=== PATIENT | female | born 1945 | race Caucasian/White ===

== ENCOUNTER 2017-05-08 12:46 | Emergency (ER) | payer MEDICARE, OTHER ==
[~2017-05-08 12:46] MED LIST: ALPRAZOLAM1 MG PO; CARBIDOPA-LEVO1 EA11 PO; CELEXA 20MG TAB20 MG PO; FERREX 150 FOR1 EACH PO; FLOVENT 44 MCG7.9 GM INH; ISOSORBIDE MONO60 MG PO; LEVOTHYROXINE50 MCG PO; LORTAB 5-325 M1 EACH PO; NEURONTIN 400400 MG PO; PROAIR HFA8.5 GM INH; REQUIP1 MG PO; STALEVO 200 TA1 EACH PO; TRIAMTERENE-HC1 EACH PO; VOLTAREN100 GM TOP
[2017-05-08 14:07] LABS: RED BLOOD COUNT 3.6 M/UL (4.00-5.10); WHITE BLOOD COUNT 7.7 K/UL (4.5-11.0)
== END 2017-05-08 19:45 | disposition home or self-care (01) ==
LOC: ER1 12:46
PROVIDERS: Family Medicine
DX: I95.9 Hypotension, unspecified (principal); D64.9 Anemia, unspecified; N39.0 Urinary tract infection, site not specified; N28.9 Disorder of kidney and ureter, unspecified; G20 Parkinson's disease; M54.9 Dorsalgia, unspecified; G89.29 Other chronic pain; I10 Essential (primary) hypertension; Z79.891 Long term (current) use of opiate analgesic; Z79.899 Other long term (current) drug therapy; Z90.49 Acquired absence of other specified parts of digestive tract
CPT/HCPCS: 36415; 71010; 80053; 81001; 82550; 82553; 83735; 83874; 84443; 84484; 85025; 87086; 93005; 99284; J7030

== ENCOUNTER 2020-11-12 23:31 | Emergency (ER) | payer MEDICARE, OTHER ==
[~2020-11-12 23:31] MED LIST changes: +ASPIRIN EC81 MG PO; +ATORVASTATIN CA40 MG PO; +BUSPIRONE HCL7.5 MG PO; +CELEXA20 MG PO; +COLACE 100MG C100 MG PO; +DULCOLAX5 MG PO; +EFFEXOR XR75 MG PO; +ELIQUIS 2.5 MG2.5 MG PO; +ELIQUIS2.5 MG PO; +FERROUS SULFAT325 M2 PO; +FLEXERIL 10 MG10 MG PO; +FLONASE 0.05% N16 GM; +HYDROCHLOROTHIA25 MG PO; +ISOSORBIDE MONO30 MG PO; -ISOSORBIDE MONO60 MG PO; -LORTAB 5-325 M1 EACH PO; +MACROBID 100 M100 MG PO; +NITROSTAT0.4 MG SL; +NORCO 5-325 TA1 EACH PO; +OXYCODONE-ACET1 EACH PO; +PERCOCET 10-321 EACH PO; +PERCOCET 5/325 T1 EA PO; +POLYETHYLENE GL17 GM PO; +PRAVASTATIN SOD20 MG PO; +REQUIP3 MG PO; +SEROQUEL25 MG PO; +SINEMET CR 50/201 EA PO; +VISTARIL25 MG PO; +Voltaren Gel 1 % TOP; +[UNRECOGNIZED DRUG - OTHER] TOP
[2020-11-12 23:53] LABS: RED BLOOD COUNT 3.31 M/UL (4.00-5.10); WHITE BLOOD COUNT 4.9 K/UL (4.5-11.0)
[2020-11-13 00:10] LABS: BUN/CREATININE RATIO 24 (0-10)
== END 2020-11-13 03:39 | disposition home or self-care (01) ==
LOC: ER1 23:31
PROVIDERS: Internal Medicine
DX: G20 Parkinson's disease (principal); Z95.1 Presence of aortocoronary bypass graft
CPT/HCPCS: 70450; 71045; 80053; 81001; 84484; 85025; 85610; 85730; 93005; 99285

== ENCOUNTER 2021-01-28 06:11 | Emergency (ER) | payer MEDICARE ==
[2021-01-28 08:32] LABS: HEMOGLOBIN 9.8 gm/dl (12.3-15.3); RED BLOOD COUNT 4.01 M/UL (4.00-5.10); WHITE BLOOD COUNT 3.8 K/UL (4.5-11.0)
== END 2021-01-28 11:47 | disposition home or self-care (01) ==
LOC: ER1 06:11
PROVIDERS: Physician Assistant
DX: R51.9 Headache, unspecified (principal); J44.9 Chronic obstructive pulmonary disease, unspecified; E03.9 Hypothyroidism, unspecified; G20 Parkinson's disease; F02.80 Dementia in other diseases classified elsewhere, unspecified severity, without behavioral disturbance, psychotic disturbance, mood disturbance, and anxiety; I11.9 Hypertensive heart disease without heart failure; D64.9 Anemia, unspecified; Z90.710 Acquired absence of both cervix and uterus; Z90.49 Acquired absence of other specified parts of digestive tract
CPT/HCPCS: 70450; 80053; 85025; 96374; 99284; J1885

== ENCOUNTER 2021-03-10 17:47 | Observation (INO) | payer MEDICARE ==
[~2021-03-10] VITALS: Ht 167.6 cm; Wt 54.4 kg
[~2021-03-10 17:47] MED LIST changes: -SINEMET CR 50/201 EA PO
[2021-03-10 18:48] LABS: HEMOGLOBIN 8.7 gm/dl (12.3-15.3); RED BLOOD COUNT 3.5 M/UL (4.00-5.10)
[2021-03-10 19:33] LABS: BUN/CREATININE RATIO 33 (0-10)
[2021-03-11] MEDS ORDERED: ROPINIROLE HCL1 MG PO ×2 (05:31→12:05)
[2021-03-11] MEDS ORDERED: SYNTHROID50 MCG PO (05:31)
[2021-03-11] MEDS ORDERED: LEXAPRO20 MG PO (05:32)
[2021-03-11 06:14] LABS: HEMOGLOBIN 9.5 gm/dl (12.3-15.3); RED BLOOD COUNT 3.83 M/UL (4.00-5.10)
[2021-03-11 06:15] LABS: WHITE BLOOD COUNT 5.9 K/UL (4.5-11.0)
[2021-03-11 06:46] LABS: BUN/CREATININE RATIO 34 (0-10)
[2021-03-11] MEDS ORDERED: KEPPRA750 MG PO (10:09)
[2021-03-11] MEDS ORDERED: NAYZILAM5 MG/0.1 M (10:10)
[2021-03-11] MEDS ORDERED: BACLOFEN20 MG PO (10:10)
[2021-03-11] MEDS ORDERED: TRIAMTERENE-HC1 EACH PO (10:11)
[2021-03-11] MEDS ORDERED: DESYREL 50 MG T50 MG PO (10:12)
[2021-03-11] MEDS ORDERED: APOKYN INJ (12:00)
[2021-03-11] MEDS ORDERED: NASONEX SPRAY 117 GM (12:07)
[2021-03-11] MEDS ORDERED: NEURONTIN800 MG PO (13:04)
[2021-03-12 03:41] LABS: BUN/CREATININE RATIO 37 (0-10)
--- NOTE | 2021-03-12 18:53 | NUR ---
03/12/[address] SOLANO STATED PT WAS NOT SUICIDAL ACCORDING TO THE DAUGHTER, TO CANCEL THE OLOP AND DISCHARGE PT TO HOME WITH HOME. CANCELLED OLOP, DISCHARGE, AND CONSULTED CM AND SS. WILL RE-EVALUATE IN THE AM Eloy RIBERA RN
--- NOTE | 2021-03-12 20:54 | NUR ---
PER REPORT FROM RUSSEL ALVES, PT MEDICATIONS WERE NOW NEEDING TO BE CRUSHED FOR PT SAFETY REASONS. PT TAKES EC ASPIRIN DAILY AND KEPPRA BID. PHARMACY WAS ALERTED TO MEDS BEING CRUSHED AND TO CHANGE ASPIRIN TO CHEWABLE TABLET AND KEPPRA TO LIQUID. DURING MEDICATION ADMINISTRATION, TWO ATTEMPTS WERE MADE TO ADMIN LIQUID KEPPRA, BUT PT HAD IT RUN OUT OF MOUTH EACH TIME, EVEN AFTER THICKENING MEDICATION. PHARMACY WAS THEN NOTIFIED THAT KEPPRA NEEDED TO BE CHANGED TO IV FORM TO ACCOMODATE. FAMILY BEDSIDE AND AWARE
--- NOTE | 2021-03-13 09:47 | NUR ---
PATIENT'S OXYGEN SATURATION WITH ACTIVITY IS 87% ON ROOM AIR.
--- NOTE | 2021-03-13 13:20 | NUR ---
ATTEMPTED TO CALL REPORT TO [facility] HOME. UNABLE TO REACH NURSE FOR REPORT. NO OPTION TO LEAVE VOICEMAIL MESSAGE.
== END 2021-03-13 12:25 | disposition home or self-care (01) ==
LOC: ER1 17:47 → CDU 23:49 → M/S 03-11 21:52
PROVIDERS: Family Medicine; Internal Medicine; ADMIT Internal Medicine
DX: J96.01 Acute respiratory failure with hypoxia (principal); J96.02 Acute respiratory failure with hypercapnia; D64.9 Anemia, unspecified; G20 Parkinson's disease; I25.10 Atherosclerotic heart disease of native coronary artery without angina pectoris; I11.0 Hypertensive heart disease with heart failure; I50.32 Chronic diastolic (congestive) heart failure; E03.9 Hypothyroidism, unspecified; I08.2 Rheumatic disorders of both aortic and tricuspid valves; R52 Pain, unspecified; E86.0 Dehydration; G47.33 Obstructive sleep apnea (adult) (pediatric); Z79.82 Long term (current) use of aspirin; Z79.899 Other long term (current) drug therapy; Z88.8 Allergy status to other drugs, medicaments and biological substances; Z20.822 Contact with and (suspected) exposure to COVID-19; Z95.1 Presence of aortocoronary bypass graft; Z98.1 Arthrodesis status; Z90.89 Acquired absence of other organs; Z87.891 Personal history of nicotine dependence
CPT/HCPCS: 36415; 36600; 70450; 71045; 71275; 80048; 80053; 81001; 82550; 82553; 82803; 83605; 83874; 83880; 84484; 85025; 87040; 93005; 94640; 94664; 94760; 96372; 96374; 97162; 97166; 99285; G0378; J1650; J2930; Q9967; U0002

== ENCOUNTER 2021-03-28 11:38 | Observation (INO) | payer MEDICARE ==
[~2021-03-28] VITALS: Ht 167.6 cm; Wt 54.4 kg
[~2021-03-28 11:38] MED LIST changes: +APOKYN INJ; +BACLOFEN20 MG PO; +DESYREL 50 MG T50 MG PO; +KEPPRA750 MG PO; +LEXAPRO20 MG PO; +NASONEX SPRAY 117 GM; +NAYZILAM5 MG/0.1 M; +NEURONTIN800 MG PO; +ROPINIROLE HCL1 MG PO; +SYNTHROID50 MCG PO
[2021-03-28 13:50] LABS: HEMOGLOBIN 9.1 gm/dl (12.3-15.3); RED BLOOD COUNT 3.58 M/UL (4.00-5.10); WHITE BLOOD COUNT 9.1 K/UL (4.5-11.0)
[2021-03-28 14:15] LABS: BUN/CREATININE RATIO 22 (0-10)
[2021-03-29 04:09] LABS: HEMOGLOBIN 8.3 gm/dl (12.3-15.3); RED BLOOD COUNT 3.44 M/UL (4.00-5.10)
[2021-03-29 04:11] LABS: WHITE BLOOD COUNT 6.1 K/UL (4.5-11.0)
[2021-03-29 04:25] LABS: BUN/CREATININE RATIO 25 (0-10)
[2021-03-29] MEDS ORDERED: CARBIDOPA-LEVO1 EA11 PO (05:31)
--- NOTE | 2021-03-29 06:59 | NUR ---
JEN NOTIFIED OF PATIENT CONFUSION PATIENT WILL NOT STAY IN BED, GAVE ORDER FOR SITTER WCTM
[2021-03-30 06:59] LABS: HEMOGLOBIN 7.8 gm/dl (12.3-15.3); RED BLOOD COUNT 3.24 M/UL (4.00-5.10)
[2021-03-30 07:21] LABS: BUN/CREATININE RATIO 26 (0-10)
[2021-03-31 05:57] LABS: HEMOGLOBIN 8.4 gm/dl (12.3-15.3); RED BLOOD COUNT 3.49 M/UL (4.00-5.10); WHITE BLOOD COUNT 3.5 K/UL (4.5-11.0)
[2021-03-31 06:25] LABS: BUN/CREATININE RATIO 24 (0-10)
[2021-04-01 06:33] LABS: HEMOGLOBIN 8.7 gm/dl (12.3-15.3); RED BLOOD COUNT 3.46 M/UL (4.00-5.10); WHITE BLOOD COUNT 2.8 K/UL (4.5-11.0)
[2021-04-01 06:50] LABS: BUN/CREATININE RATIO 30 (0-10)
--- NOTE | 2021-04-04 12:23 | NUR ---
1135- HEARD BEDALARMS GOING OFF IN PATIENTS ROOM. [facility] AND NOTED HER TO BE ON THE FLOOR BESIDE HER BED ON HER KNEES. DAUGHTER AT BEDSIDE AND STATED SHE SLID OUT OF BED ONTO HER KNEES. NO COMPLAINTS NOTED. NO REDNESS NOTED TO KNEES. VITAL SIGNS STABLE. NON SKID FOOTWEAR ON AT THIS TIME. CALL LIGHT WITHIN REACH. MD NOTIFIED. NO NEW ORDERS NOTED AT THIS TIME.
[2021-04-06 05:47] LABS: HEMOGLOBIN 9.4 gm/dl (12.3-15.3); RED BLOOD COUNT 3.74 M/UL (4.00-5.10); WHITE BLOOD COUNT 4.6 K/UL (4.5-11.0)
[2021-04-06 07:40] LABS: BUN/CREATININE RATIO 19 (0-10)
[2021-04-06] MEDS ORDERED: PERCOCET 10-321 EACH PO (14:23)
[2021-04-06] MEDS ORDERED: DIVALPROEX SOD125 MG PO (14:23)
[2021-04-06] MEDS ORDERED: ROPINIROLE HCL1 MG PO (14:26)
[2021-04-07 06:04] LABS: HEMOGLOBIN 9.6 gm/dl (12.3-15.3); RED BLOOD COUNT 3.87 M/UL (4.00-5.10); WHITE BLOOD COUNT 3.8 K/UL (4.5-11.0)
[2021-04-07 06:13] LABS: BUN/CREATININE RATIO 21 (0-10)
== END 2021-04-07 17:55 | disposition hospice, inpatient (51) ==
LOC: ER1 11:38 → M/S 17:01 → CDU 17:01 → M/S 03-29 06:05
PROVIDERS: Internal Medicine; Physician Assistant Medical; ADMIT Internal Medicine
DX: G20 Parkinson's disease (principal); J44.9 Chronic obstructive pulmonary disease, unspecified; I25.10 Atherosclerotic heart disease of native coronary artery without angina pectoris; Z95.1 Presence of aortocoronary bypass graft; G47.33 Obstructive sleep apnea (adult) (pediatric); D64.9 Anemia, unspecified; I50.32 Chronic diastolic (congestive) heart failure; E89.0 Postprocedural hypothyroidism; I11.0 Hypertensive heart disease with heart failure; Z98.1 Arthrodesis status; I08.2 Rheumatic disorders of both aortic and tricuspid valves; E87.2 Acidosis; Z20.822 Contact with and (suspected) exposure to COVID-19
CPT/HCPCS: 36415; 36600; 70450; 71045; 73502; 80048; 80053; 80307; 81001; 82550; 82553; 82803; 83605; 83735; 83874; 84439; 84443; 84484; 85025; 85027; 87040; 93005; 94760; 96372; 96374; 96375; 96376; 97110; 97116-GP-CQ; 97161; 97166; 97530; 97530-GP-CQ; 97535; 99285; G0378; G0480; J0456; J0696; J1650; J2060; J3486; J7030; U0002

== ENCOUNTER 2021-06-01 12:25 | Emergency (ER) | payer MEDICARE ==
[~2021-06-01 12:25] MED LIST changes: +DIVALPROEX SOD125 MG PO
[2021-06-01 13:01] LABS: HEMOGLOBIN 9.2 gm/dl (12.3-15.3); RED BLOOD COUNT 3.72 M/UL (4.00-5.10); WHITE BLOOD COUNT 3.9 K/UL (4.5-11.0)
[2021-06-01 13:24] LABS: BUN/CREATININE RATIO 21 (0-10)
== END 2021-06-01 16:20 | disposition home or self-care (01) ==
LOC: ER1 12:25
PROVIDERS: Student in an Organized Health Care Education/Training Program
DX: F03.90 Unspecified dementia, unspecified severity, without behavioral disturbance, psychotic disturbance, mood disturbance, and anxiety (principal); D64.9 Anemia, unspecified; J44.9 Chronic obstructive pulmonary disease, unspecified; I11.0 Hypertensive heart disease with heart failure; I50.9 Heart failure, unspecified
CPT/HCPCS: 70450; 71045; 72125; 73522; 80053; 81001; 82550; 82553; 83874; 84439; 84443; 84484; 85025; 99285

== ENCOUNTER 2021-08-26 12:59 | Emergency (ER) | payer MEDICARE ==
[2021-08-26 13:48] LABS: RED BLOOD COUNT 3.25 M/UL (4.00-5.10); WHITE BLOOD COUNT 12.3 K/UL (4.5-11.0)
[2021-08-26 13:49] LABS: HEMOGLOBIN 6.5 gm/dl (12.3-15.3)
[2021-08-26 14:36] LABS: BUN/CREATININE RATIO 29 (0-10)
== END 2021-08-26 14:45 | disposition home or self-care (01) ==
LOC: ER1 12:59
PROVIDERS: Emergency Medicine
DX: I63.9 Cerebral infarction, unspecified (principal); R29.710 NIHSS score 10; D64.9 Anemia, unspecified; Z20.822 Contact with and (suspected) exposure to COVID-19; Z86.59 Personal history of other mental and behavioral disorders; Z95.1 Presence of aortocoronary bypass graft
CPT/HCPCS: 36430; 70450; 71045; 80053; 82550; 82553; 82962; 83874; 84484; 85025; 85610; 85730; 86850; 86900; 86901; 86920; 93005; 99285; P9016; U0002